=== PATIENT | male | born 1990 | race African-American/Black ===

== ENCOUNTER 2023-09-05 15:33 | Emergency (ER) | payer MEDICAID, OTHER ==
[~2023-09-05] VITALS: Ht 198.1 cm; Wt 95.7 kg
[2023-09-05 15:43] VITALS: O2SAT 99
[2023-09-05] MEDS ORDERED: KETOROLAC TROMETHAMINE 30 MG INJ IVP ONE (16:15)
[2023-09-05] MEDS ORDERED: KETOROLAC TROMETHAMINE 30 MG INJ ONE (16:15)
[2023-09-05] MEDS ORDERED: ACETAMINOPHEN 650 MG/20.3 ML LIQUID UDC PO ONE (16:15)
[2023-09-05] MEDS ORDERED: ACETAMINOPHEN 325 MG TABLET ONE (16:15)
[2023-09-05 16:20] LABS: BASOPHILS # (AUTO) 0.1 K/UL (0.0-0.2); BASOPHILS % (AUTO) 0.4 % (0.0-2.0); EOSINOPHILS # (AUTO) 0.1 K/uL (0.0-0.7); EOSINOPHILS % (AUTO) 0.4 % (0.0-7.0); HEMATOCRIT 42.9 % (36.7-47.1); HEMOGLOBIN 13.6 g/dL (12.5-16.3); LYMPHOCYTES # (AUTO) 1.6 K/uL (0.8-4.8); LYMPHOCYTES % (AUTO) 11.3 % (20.5-51.5); MEAN CORPUSCULAR HEMOGLOBIN 23.7 uug (23.8-33.4); MEAN CORPUSCULAR HGB CONC 32 g/dL (32.5-36.3); MONOCYTES # (AUTO) 1.1 K/uL (0.1-1.30); MONOCYTES % (AUTO) 8.1 % (0.0-11.0); NEUTROPHILS # (AUTO) 11.4 K/uL (1.8-8.9); NEUTROPHILS % (AUTO) 79.8 % (38.5-71.5); PLATELET COUNT (AUTO) 223 K/uL (152-348); RED BLOOD CELL COUNT(AUTO) 5.72 MIL/uL (4.06-5.63); RED CELL DISTRIBUTION WIDTH 14.3 % (12.1-16.2); WHITE BLOOD COUNT (AUTO) 14.2 K/uL (3.6-10.2)
[2023-09-05 16:21] LABS: DIFFERENTIAL COMMENT 1
[2023-09-05 16:32] LABS: CALCIUM 9.7 mg/dL (8.5-10.1); CREATININE 1.3 mg/dL (0.6-1.3); POTASSIUM 3.5 mmol/L (3.5-5.1)
[2023-09-05 16:37] LABS: ALBUMIN 3.7 g/dL (3.4-5.0); BILIRUBIN,TOTAL 0.7 mg/dL (0.2-1.0); TOTAL PROTEIN, SERUM 8.1 g/dL (6.4-8.2)
[2023-09-05] MEDS ORDERED: AZIT250T PO (18:09)
== END 2023-09-05 18:29 | disposition home or self-care (01) ==
LOC: ER 15:34
DX: J03.90 Acute tonsillitis, unspecified (principal); Z88.1 Allergy status to other antibiotic agents; Z79.2 Long term (current) use of antibiotics; Z20.822 Contact with and (suspected) exposure to COVID-19
CPT/HCPCS: 99283; 96374; 87426; 80053; 85025; 86403; 87040; 36415; 83605; J1885; A4606; A4663